=== PATIENT | male | born 1985 | race Caucasian/White ===

== ENCOUNTER 2021-07-22 02:13 | Emergency (ER) | payer SELFPAY ==
[~2021-07-22 02:13] MED LIST: DELSYM30 MG/5 ML PO; FLONASE 0.05% N16 GM; PREDNISONE 50 M50 MG PO; VENTOLIN HFA 66.7 GM INH; ZITHROMAX250 MG PO
[2021-07-22] MEDS ORDERED: ZOFRAN ODT 4 MG4 MG PO (04:52)
[2021-07-22] MEDS ORDERED: LODINE CAP 300300 MG PO (04:52)
[2021-07-22] MEDS ORDERED: PROVENTIL HFA6.7 GM INH (04:52)
== END 2021-07-22 05:00 | disposition home or self-care (01) ==
LOC: ER1 02:13
DX: U07.1 COVID-19 (principal); I11.0 Hypertensive heart disease with heart failure; I50.9 Heart failure, unspecified
CPT/HCPCS: 0240U; 71045; 99283